=== PATIENT | female | born 1985 | race Caucasian/White ===

== ENCOUNTER 2018-12-31 18:44 | Emergency (ER) | payer SELFPAY ==
[2018-12-31] MEDS ORDERED: Sodium Chloride 0.9% 1,000 ML IV SCH (19:45)
--- NOTE | 2018-12-31 19:49 | EDM.PDOC ---
ED HPI GENERAL MEDICAL PROBLEM - General Chief Complaint: Abdominal Pain Stated Complaint: ABDOMINAL PAIN Time Seen by Provider: 12/31/18 19:17 Source of Information: Reports: Patient, Family (Daughter) History Limitations: Reports: No Limitations - History of Present Illness INITIAL COMMENTS - FREE TEXT/NARRATIVE: Mrs. Alonzo is a very pleasant 33-year-old woman with no significant past medical history, who states that she developed sudden onset left lower quadrant abdominal pain this past Sunday night, 12/29/2018. The pain did not wake her; she noticed it when she got up to urinate. She describes the pain as sharp and crampy in character. It is constant, made worse if she moves, including walking , made better if she remains still. Since Sunday, the pain has been progressing up the left side of her abdomen, and is now even extending towards her epigastrium. She developed mild "annoying" left flank pain today, along with nausea and emesis. No recent fever. No dysuria or urinary urgency, but she states that she does feel the need to urinate about every 20 minutes. No gross hematuria. The patient states that she has had similar pain, not as severe, and only lasting about 24 hours, in the past, due to constipation. Because of that, the patient started taking laxatives, and developed watery, nonbloody diarrhea yesterday. Her pain, however, has persisted. The patient's LMP was 12/08/2018. She has not had any vaginal bleeding since. The patient's PCP is PEDRO Jackson. Left Abdominal Pain Score (Numeric/FACES): 7 - Related Data Allergies Allergy/AdvReac Type Severity Reaction Status Date / Time Penicillins Allergy Hives Verified 12/31/18 19:07 Sulfa (Sulfonamide Allergy Abdominal Verified 12/31/18 19:07 Antibiotics) Pain Home Meds: Home Meds LORazepam [Ativan] 0.5 mg PO BID PRN 12/31/18 [History] Levofloxacin [Levaquin] 1 tab PO QPM #9 tablet 12/31/18 [Rx] metroNIDAZOLE [Flagyl] 1 tab PO Q8H #29 tab 12/31/18 [Rx] traZODone HCl [Trazodone HCl] 50 - 100 mg PO BEDTIME 12/31/18 [History] Past Medical History Cardiovascular History: Reports: High Cholesterol (untreated) [employer] History: Reports: , Spontaneous Musculoskeletal History: Reports: Fracture (T3-T4 fx at 13 yrs old) Psychiatric History: Reports: Anxiety, Other (See Below) (Insomnia) Endocrine/Metabolic History: Reports: Obesity/BMI 30+ - Past Surgical History HEENT Surgical History: Reports: Oral Surgery (dental extraction) Social & Family History - Tobacco Use Smoking Status *Q: Former Smoker Tobacco Use Within Last Twelve Months: Vaping (vapes nicotine regularly) Years of Tobacco use: 19 Packs/Tins Daily: 1 Month/Year Tobacco Last Used: Quit Mar 2015 - Caffeine Use Caffeine Use: Reports: Coffee - Alcohol Use Alcohol Use History: Yes Alcohol Use Frequency: Socially - Recreational Drug Use Recreational Drug Use: Yes Drug Use in Last 12 Months: No Recreational Drug Type: Reports: Marijuana/Hashish (last smoked 2014), Methamphetamine (last smoked 2005) - Living Situation & Occupation Living situation: Reports: , with Spouse, with Family (2 kids) Occupation: Employed ([employer]) ED ROS GENERAL - Review of Systems Review Of Systems: ROS reveals no pertinent complaints other than HPI. ED EXAM, GI/ABD - Physical Exam Exam: See Below Exam Limited By: No Limitations General Appearance: Alert, WD/WN, No Apparent Distress Eyes: Bilateral: Normal Appearance, EOMI Ears: Normal External Exam, Hearing Grossly Normal Nose: Normal Inspection Throat/Mouth: Normal Inspection, Normal Lips, Normal Voice, No Airway Compromise Head: Atraumatic, Normocephalic Neck: Normal Inspection, Full Range of Motion Respiratory/Chest: No Respiratory Distress, Lungs Clear, Normal Breath Sounds, No Accessory Muscle Use Cardiovascular: Normal Peripheral Pulses, Regular Rate, Rhythm, No Edema, No Gallop, No JVD, No Murmur, No Rub GI/Abdominal Exam: Normal Bowel Sounds, Soft, No Organomegaly, No Distention, No Abnormal Bruit, No Mass, Tender (Primarily to the left lower quadrant/pelvis , which has exquisite tenderness. No rebound. Minimal tenderness elsewhere, except that palpation elsewhere may induce pain in the left lower quadrant.) (Female) Exam: Deferred Rectal (Female) Exam: Deferred Back Exam: Normal Inspection, Full Range of Motion. No: CVA Tenderness (L), CVA Tenderness (R) Extremities: Normal Inspection, Normal Range of Motion, No Pedal Edema, Normal Capillary Refill Neurological: Alert, Oriented, Normal Cognition, No Motor/Sensory Deficits Psychiatric: Normal Affect Skin Exam: Warm, Dry, Intact, Normal Color, No Rash Course - Vital Signs Last Recorded V/S: Last Vital Signs Temp 36.4 C 12/31/18 19:00 Pulse 112 H 12/31/18 19:00 Resp 18 12/31/18 19:00 BP 120/82 12/31/18 19:00 Pulse Ox 95 12/31/18 19:00 - Orders/Labs/Meds Orders: Active Orders 24 hr Category Date Time Status Abdomen Pelvis w Cont [CT] Stat Exams 12/31/18 19:43 Taken Sodium Chloride 0.9% [Normal Saline] 1,000 ml Med 12/31/18 19:45 Active IV ASDIRECTED Sodium Chloride 0.9% [Saline Flush] Med 12/31/18 20:15 Active 10 ml FLUSH ASDIRECTED Medication Orders Sodium Chloride (Normal Saline) 1,000 mls @ 150 mls/hr IV ASDIRECTED LEANNE Last Admin: 12/31/18 19:57 Dose: 150 mls/hr Sodium Chloride (Saline Flush) 10 ml FLUSH ASDIRECTED LEANNE Last Admin: 12/31/18 21:37 Dose: 10 ml Labs: Laboratory Tests 12/31/18 12/31/18 12/31/18 Range/Units 19:55 19:55 19:55 WBC 13.41 H (3.98-10.04) K/mm3 RBC 4.39 (3.98-5.22) M/mm3 Hgb 14.3 (11.2-15.7) gm/dl Hct 42.7 (34.1-44.9) % MCV 97.3 H (79.4-94.8) fl MCH 32.6 H (25.6-32.2) pg MCHC 33.5 (32.2-35.5) g/dl RDW Std Deviation 45.3 (36.4-46.3) fL Plt Count 269 (182-369) K/mm3 MPV 9.6 (9.4-12.3) fl Neutrophils % (Manual) 85 H (40-60) % Band Neutrophils % 1 (0-10) % Lymphocytes % (Manual) 7 L (20-40) % Atypical Lymphs % 0 % Monocytes % (Manual) 6 (2-10) % Eosinophils % (Manual) 1 (0.7-5.8) % Basophils % (Manual) 0 L (0.1-1.2) Platelet Estimate Adequate RBC Morph Comment Normal Sodium 134 L (136-145) mEq/L Potassium 3.4 L (3.5-5.1) mEq/L Chloride 100 (98-107) mEq/L Carbon Dioxide 24 (21-32) mEq/L Anion Gap 13.4 (5-15) BUN 10 (7-18) mg/dL Creatinine 0.7 (0.55-1.02) mg/dL Est Cr Clr Drug Dosing 88.72 mL/min Estimated GFR (MDRD) > 60 (>60) mL/min BUN/Creatinine Ratio 14.3 (14-18) Glucose 91 (74-106) mg/dL Calcium 9.2 (8.5-10.1) mg/dL Total Bilirubin 1.0 (0.2-1.0) mg/dL AST 16 (15-37) U/L ALT 37 (14-59) U/L Alkaline Phosphatase 88 (46-116) U/L Total Protein 8.0 (6.4-8.2) g/dl Albumin 3.4 (3.4-5.0) g/dl Globulin 4.6 gm/dL Albumin/Globulin Ratio 0.7 L (1-2) Lipase 92 (73-393) U/L HCG, Quant < 1.0 mIU/mL Urine Color (Yellow) Urine Appearance (Clear) Urine pH (5.0-8.0) Ur Specific [place] (1.005-1.030) Urine Protein (Negative) Urine Glucose (UA) (Negative) Urine Ketones (Negative) Urine Occult Blood (Negative) Urine Nitrite (Negative) Urine Bilirubin (Negative) Urine Urobilinogen (0.2-1.0) Ur Leukocyte Esterase (Negative) Urine RBC (0-5) /hpf Urine WBC (0-5) /hpf Ur Squamous Epith Cells (0-5) /hpf Urine Bacteria (FEW) /hpf Urine Mucus (FEW) /hpf 12/31/18 Range/Units 21:30 WBC (3.98-10.04) K/mm3 RBC (3.98-5.22) M/mm3 Hgb (11.2-15.7) gm/dl Hct (34.1-44.9) % MCV (79.4-94.8) fl MCH (25.6-32.2) pg MCHC (32.2-35.5) g/dl RDW Std Deviation (36.4-46.3) fL Plt Count (182-369) K/mm3 MPV (9.4-12.3) fl Neutrophils % (Manual) (40-60) % Band Neutrophils % (0-10) % Lymphocytes % (Manual) (20-40) % Atypical Lymphs % % Monocytes % (Manual) (2-10) % Eosinophils % (Manual) (0.7-5.8) % Basophils % (Manual) (0.1-1.2) Platelet Estimate RBC Morph Comment Sodium (136-145) mEq/L Potassium (3.5-5.1) mEq/L Chloride (98-107) mEq/L Carbon Dioxide (21-32) mEq/L Anion Gap (5-15) BUN (7-18) mg/dL Creatinine (0.55-1.02) mg/dL Est Cr Clr Drug Dosing mL/min Estimated GFR (MDRD) (>60) mL/min BUN/Creatinine Ratio (14-18) Glucose (74-106) mg/dL Calcium (8.5-10.1) mg/dL Total Bilirubin (0.2-1.0) mg/dL AST (15-37) U/L ALT (14-59) U/L Alkaline Phosphatase (46-116) U/L Total Protein (6.4-8.2) g/dl Albumin (3.4-5.0) g/dl Globulin gm/dL Albumin/Globulin Ratio (1-2) Lipase (73-393) U/L HCG, Quant mIU/mL Urine Color Yellow (Yellow) Urine Appearance Clear (Clear) Urine pH 6.0 (5.0-8.0) Ur Specific [place] 1.010 (1.005-1.030) Urine Protein Negative (Negative) Urine Glucose (UA) Negative (Negative) Urine Ketones 2+ H (Negative) Urine Occult Blood Negative (Negative) Urine Nitrite Negative (Negative) Urine Bilirubin 1+ H (Negative) Urine Urobilinogen 0.2 (0.2-1.0) Ur Leukocyte Esterase Negative (Negative) Urine RBC 0-5 (0-5) /hpf Urine WBC 0-5 (0-5) /hpf Ur Squamous Epith Cells 5-10 H (0-5) /hpf Urine Bacteria Few (FEW) /hpf Urine Mucus Few (FEW) /hpf Meds: Medications Generic Name Dose Route Start Last Admin Trade Name Freq PRN Reason Stop Dose Admin Sodium Chloride 1,000 mls @ 150 mls/hr 12/31/18 19:45 12/31/18 19:57 Normal Saline IV 150 mls/hr ASDIRECTED LEANNE Administration Sodium Chloride 10 ml 12/31/18 20:15 12/31/18 21:37 Saline Flush FLUSH 10 ml ASDIRECTED LEANNE Administration Discontinued Medications Generic Name Dose Route Start Last Admin Trade Name Freq PRN Reason Stop Dose Admin Diatrizoate Meglum/Diatrizoate Sod 120 ml 12/31/18 20:15 12/31/18 21:37 Gastrografin 37% PO 12/31/18 20:16 120 ml ONETIME ONE Administration Iopamidol 100 ml 12/31/18 20:15 12/31/18 21:37 Isovue-300 (61%) IVPUSH 12/31/18 20:16 100 ml ONETIME ONE Administration Ketorolac Tromethamine 30 mg 12/31/18 19:59 12/31/18 20:03 Toradol IVPUSH 12/31/18 20:00 30 mg ONETIME STA Administration Levofloxacin 750 mg 12/31/18 22:08 Levaquin PO 12/31/18 22:09 ONETIME STA Metronidazole 500 mg 12/31/18 22:09 Flagyl PO 12/31/18 22:10 ONETIME STA - Re-Assessments/Exams Free Text/Narrative Re-Assessment/Exam: 12/31/18 19:44 The etiology of the patient's abdominal pain is not immediately clear. Acute diverticulitis, colitis, and a ruptured ovarian cyst are most likely. Less likely would be a UTI, and much less likely would be a ureterolith. The patient had expressed to the triage nurse that she did not want a CT scan, citing financial concerns. We discussed that a transvaginal pelvic ultrasound can diagnose a hemorrhagic or ruptured ovarian cyst, but is essentially useless at diagnosing all of the other potential etiologies. Further, a CT scan, while it may not be able to identify a hemorrhagic ovarian cyst, would be able to identify a ruptured ovarian cyst with blood in the pelvis, as well as all of the other concerns. I therefore had no choice but to recommend a CT of the abdomen and pelvis, to which the patient has agreed. Blood work and urine will be collected. The patient will be given IV fluid. She declined an offer for both pain and antinausea medicine. 12/31/18 20:03 Notified by Aaliyah GENTILE that the patient requested pain medicine for a headache. Because she is driving, she does not want an opioid. I ordered Toradol. 12/31/18 22:04 The patient's CBC is remarkable for a WBC count mildly elevated at 13.41, with 1 % bandemia. The patient is not anemic, however, she has macrocytosis and hyperchromia. The remainder of her CBC is unremarkable. Her CMP is remarkable for a sodium slightly depressed at 134 and a potassium slightly depressed at 3.4, with the remainder of her CMP being unremarkable. Her lipase is within normal limits at 92. Her quantitative hCG is less than 1.0. Her urinalysis is unremarkable. The CT of the abdomen and pelvis with oral and IV contrast is read by Efrain as "Distal colonic diverticulitis. No abscess". [sic] Based on the above, the patient appears to have distal colonic diverticulitis. I will start her on oral levofloxacin and metronidazole. Because there is no suggestion of an abscess, the patient does not need to be hospitalized. 12/31/18 22:18 Test results discussed with the patient and her daughter. Patient will be discharged home with prescriptions for ofloxacin and metronidazole, to complete a ten-day course. I would like her to eat a low fiber diet for the next 3-4 days , until she is feeling better, after which she can resume a regular diet. Once she has completely healed, she should eat a high-fiber diet. I will write a note for work for tomorrow, and the patient will need to follow-up with her PCP to arrange for an outpatient colonoscopy in 6-8 weeks. Departure - Departure Time of Disposition: 22:19 Disposition: Home, Self-Care 01 Condition: Good Clinical Impression: Acute diverticulitis - Discharge Information *PRESCRIPTION DRUG MONITORING PROGRAM REVIEWED*: Not Applicable *COPY OF PRESCRIPTION DRUG MONITORING REPORT IN PATIENT LUIS: Not Applicable Referrals: Jennifer Torres PA-C [Primary Care Provider] - Forms: ED Department Discharge, ED Return to Work/School Form Additional Instructions: You were seen in the emergency room for lower left abdominal pain radiating up the left side of her abdomen, along with nausea and vomiting. Workup in the ER included blood work, a urinalysis, and a CT scan of your abdomen and pelvis with oral and IV contrast. Your workup found that you have diverticulitis of your distal colon. You have been started on the antibiotics metronidazole (Flagyl) and levofloxacin (Levaquin). Prescriptions for metronidazole and levofloxacin have [facility], located in the [facility] across [address] from the hospital. Take one tablet of metronidazole every 8 hours, starting tomorrow morning, 01/01/2019, as prescribed. Take one tablet of levofloxacin every evening, starting tomorrow evening, 01/01/2019, as prescribed. Finish both prescriptions unless told otherwise by your provider. In addition to the antibiotics, you may take [id number] ibuprofen, 3 tablets (600 mg) every 8 hours, with food, as needed for discomfort. A note for work has been provided to you. We recommend that you eat a low fiber/low residue diet for the next 3-4 days, until you are feeling somewhat better. After that, you may resume your usual diet. In the long-term, we recommend that you eat a high-fiber diet. As discussed, we recommend that you follow-up with your PCP, PEDRO Jackson , to arrange for an outpatient colonoscopy in 6-8 weeks. If any other problems, please do not hesitate to return to the ER. - My Orders Last 24 Hours: My Active Orders 12/31/18 19:43 Abdomen Pelvis w Cont [CT] Stat 12/31/18 19:45 Sodium Chloride 0.9% [Normal Saline] 1,000 ml IV ASDIRECTED 12/31/18 20:15 Sodium Chloride 0.9% [Saline Flush] 10 ml FLUSH ASDIRECTED - Assessment/Plan Last 24 Hours: My Active Orders 12/31/18 19:43 Abdomen Pelvis w Cont [CT] Stat 12/31/18 19:45 Sodium Chloride 0.9% [Normal Saline] 1,000 ml IV ASDIRECTED 12/31/18 20:15 Sodium Chloride 0.9% [Saline Flush] 10 ml FLUSH ASDIRECTED
[2018-12-31] MEDS ORDERED: Ketorolac 30 MG/ML SDV IVPUSH STA (19:59)
[2018-12-31] MEDS ORDERED: Diatrizoate Meglumine/Diatrizoate Sodium 37% 120 ML Bottle PO ONE (20:15)
[2018-12-31] MEDS ORDERED: Sodium Chloride 0.9% 10 ML Syringe FLUSH SCH (20:15)
[2018-12-31] MEDS ORDERED: Iopamidol 612 MG/ML 100 ML Bottle IVPUSH ONE (20:15)
[2018-12-31] MEDS ORDERED: Levofloxacin 750 MG Tab PO STA (22:08)
[2018-12-31] MEDS ORDERED: metroNIDAZOLE 500 MG Tab PO STA (22:09)
--- NOTE | 2019-01-01 08:24 | CT ---
CT abdomen and pelvis Technique: Multiple axial sections were obtained from above the dome of the diaphragm inferiorly through the pubic symphysis. Intravenous and oral contrast was utilized. Delayed images were also obtained through the abdomen and pelvis. Comparison: No prior abdominal imaging is available. Findings: Inflammatory change is seen around a portion of the sigmoid colon with adjacent bowel wall thickening within the sigmoid colon. These findings occur in the area of diverticulosis and findings are compatible with diverticulitis. No fluid collections of abscess are seen at this time. Visualized lung bases show nothing acute. Liver shows mild fatty infiltration. No focal abnormality is identified within the liver. Gallbladder contains no calcified gallstones. Spleen appears within normal limits. Adrenal glands show no nodule. Pancreas is within normal limits. Kidneys show symmetric contrast enhancement without hydronephrosis. Small cortical lesion is noted within the left kidney measuring 6 mm. This is too small to characterize but most likely represents a minimal cyst. Aorta shows no aneurysm. No retroperitoneal adenopathy or mesenteric abnormalities are seen. No pelvic mass or adenopathy is seen. Appendix is seen and is normal. Delayed images show contrast within the ureters and bladder. Bone window settings were reviewed which appear within normal limits for the patient's age. Impression: 1. Findings compatible with diverticulitis as described above. 2. Fatty infiltration within the liver and other findings believed to be incidental. Diagnostic code #3 I agree with preliminary report from [facility], finalized on 12/31/18, 10:46 PM Central Time
== END 2018-12-31 22:30 | disposition home or self-care (01) ==
LOC: JD.ED 18:44
DX: K57.92 Diverticulitis of intestine, part unspecified, without perforation or abscess without bleeding (principal); F41.9 Anxiety disorder, unspecified; E66.9 Obesity, unspecified; Z68.34 Body mass index [BMI] 34.0-34.9, adult; Z88.0 Allergy status to penicillin; Z88.2 Allergy status to sulfonamides; Z79.899 Other long term (current) drug therapy; Z87.891 Personal history of nicotine dependence
CPT/HCPCS: 36415; 74177; 80053; 81001; 83690; 84702; 85007; 85027; 96361; 96374; 99284; A9270; J1885; J7040; Q9963; Q9967